=== PATIENT | male | born 1965 | race Caucasian/White ===

== ENCOUNTER 2022-05-10 15:49 | Outpatient (RCR) | payer OTHER, SELFPAY ==
--- NOTE | 2022-05-10 16:53 | PTOPEVAL1 ---
Assessment and note entered by Angelica Velasco, PT Evaluation Information Assessment Status Evaluation Diagnosis Left Knee Lateral Meniscus Tear Subjective Information Micah Dillard reports he injured his left knee about 2.5 weeks ago. He states he felt like his left hip popped out of socket while walking one day and then his knee started hurting. He report pain was constant initially but is now intermittent. He was prescribed a brace to wear and was given an anti-fatigue mat to stand on while working. He is required to stand on concrete all day at the [employer]. He underwent a x-ray at the clinic and the orthopedic surgeon. He was diagnosed with a partial lateral meniscus tear. He also was given a cortisone injection that helped with pain. Increased pain at night when he takes the brace off. Reported Pain Level Pain Score 0: Self Report Assessment PT Clinical Summary Micah Dillard presents with left knee pain and has been diagnosed with a lateral meniscus tear. He is reporting pain in the evenings after standing all day at work. He objectively demonstrates painful left knee extension AROM, decreased left knee and hip strength, decreased functional strength, and decreased functional abilities. He will benefit from skilled PT to address these limitations. Plan of Care Interventions Electrical Stimulation,Hot Pack/Cold Pack, Intermittent Compression,Manual Therapy,Neuro Re- education,Patient/Caregiver Educati,Therapeutic Activities,Therapeutic Exercise PT Services Indicated Yes These treatments will address the objective and functional deficits as defined above. The patient will be advanced safely and appropriately in order for the patient to progress towards his/her prior level of function. Additional exercises will be introduced and as well as a comprehensive home exercise program upon discharge, if needed, ?to ensure carryover of functional gains achieved in the clinic. This treatment plan has been reviewed and agreement upon by the patient.
--- NOTE | 2022-09-25 16:34 | PCPTNOTE ---
09/25/22: Patient was last treated in PT on 05/23/22. He is discharged. Angelica Velasco, PT
== END 2022-05-23 23:59 | disposition home or self-care (01) ==
LOC: CHSPT 15:49
PROVIDERS: Visit Provider Nurse Practitioner Family
DX: S83.282A Other tear of lateral meniscus, current injury, left knee, initial encounter (principal)
CPT/HCPCS: 97110; 97161